=== PATIENT | female | born 1950 | race Caucasian/White ===

== ENCOUNTER 2019-08-26 21:58 | Inpatient (IN) ==
[2019-08-26] MEDS ORDERED: SODIUM CHLORIDE 1,000 ML IV STA (22:58)
[2019-08-26] MEDS ORDERED: VANCOMYCIN 1 GM in SODIUM CHLORIDE 250 ML IV STA (22:59)
[2019-08-26] MEDS ORDERED: ZOSYN 3.375 GM 3.375 GM in SODIUM CHLORIDE 50 ML IV STA (22:59)
--- NOTE | 2019-08-27 00:22 | CT ---
Exam: CT of the chest, abdomen and pelvis without contrast History: Cough and fever Technique: [address] of the chest, abdomen and pelvis without intravascular contrast FINDINGS: Chest: Small bilateral pleural effusions are present. Consolidative change in the basilar right upper lobe. Atelectasis versus consolidation of the basilar left upper lobe and left lower lobe. Atherosclerot ic calcification of the aorta without aneurysm. No pathologic lymph node enlargement mediastinum. N o acute chest wall abnormality. Abdomen and pelvis: Technically inhibiting artifact. The patient's flanks are touching the gantry. No significant liver abnormality. The adrenals, pancreas and spleen are unremarkable. The stomach and hiatus are unrema rkable. Bowel loops demonstrate normal caliber. No inflamatory change seen in the mesentery or retr operitoneum. The appendix is normal. Atherosclerotic calcification of the aorta without aneurysm. Exophytic indeterminate 4.9 x 3.3 cm lesion of the left kidney anteriorly also seen on 07/13/2019. Calcified nodules of the uterus. No pelvic fat inflammation. Anne catheter decompresses the urinar y bladder. Colonic diverticulosis of the sigmoid. No pelvic fat inflammation. No acute findings of the skeleton. Impression: 1. Small bilateral pleural effusions with adjacent compressive atelectasis. Complete atelectasis of the left lower lobe. Cannot exclude pneumonia component. 2. Patchy consolidation in the right upper lobe favoring pneumonia. Atelectasis versus pneumonia of the basilar left upper lobe. 3. No inflammatory process, bowel or urinary obstruction 4. Indeterminate mass in the anterior left kidney also seen on 07/13/2019. Further evaluation with renal mass CT versus MRI recommended. Ultrasound will likely not be helpful given body habitus limit ations.
[2019-08-27] MEDS ORDERED: DUONEB NEB STA (00:43)
[2019-08-27] MEDS ORDERED: XOPENEX 1.25 MG NEB STA (00:43)
[2019-08-27] MEDS ORDERED: LASIX IVP STA ×2 (00:45→17:36)
--- NOTE | 2019-08-27 00:59 | ED.PDOC ---
General ED Provider: Dr. KAREN BRODY Chief Complaint: Shortness of Air Stated Complaint: sent from the mo with sob and temp 101.8 Time Seen by Physician: 01:11 Mode of Arrival: Ambulance Information Source: Patient and EMT Primary Care Provider: AJITH CALVILLO Nursing and Triage Documentation Reviewed and Agree: Yes Does patient meet sepsis criteria?: No System Inflammatory Response Syndrome: Temp 101F or Greater Sepsis Protocol: For patient's 13 years and over: Temp is 96.8 and below OR 101 and greater Pulse >90 BPM Resp >20/minute Acutely Altered Mental Status Are patient's symptoms suggestive of a new infection, such as: -Pneumonia -Skin, Soft Tissue -Endocarditis -UTI -Bone, Joint Infection -Implantable Device -Acute Abdominal Infection -Wound Infection -Meningitis -Blood Stream Catheter Infection -Unknown Respiratory Complaint Exam Respiratory Complaint/Exam Onset/Duration: 24hrs Symptoms Are: Still present Timing: Constant Initial Severity: Mild Current Severity: Moderate Location: Chest Character: Reports Non-productive cough Aggravating: Reports None Alleviating: Reports Bronchodilators Associated Signs and Symptoms: Reports Dyspnea, Fever and Chills History of Healthcare-Acquired Pneumonia: Lives at [facility] Oxygen Use: No Recent Stress Test: No Recent Echo/LV Function: No Current Antibiotic Use: No Current Asthma Medication Use: No Respiratory Distress: Mild Inadequate Respiratory Effort: Yes Dysphagia Present: No Stridor Present: No JVD Present: No Accessory Muscle Use: No Retractions: Not Present Diminished Breath Sounds: Yes Prolonged Respiration: Expiratory phase Sinus Tenderness: None Grunting Respirations: No Kussmaul Respirations: No Differential Diagnoses: Pulmonary Edema and Pneumonia Quality Indicators For Pneumonia: Blood Cultures-SCU admit Non-Traumatic Chest Pain Syncope: EKG Performed Review of Systems Review Of Systems Constitutional: Reports No symptoms Eyes: Reports No symptoms Ears, Nose, Mouth, Throat: Reports No symptoms Respiratory: Reports Cough and Short of air Cardiac: Reports No symptoms GI: Reports No symptoms : Reports No symptoms Musculoskeletal: Reports No symptoms Skin: Reports No symptoms Neurological: Reports No symptoms Endocrine: Reports No symptoms Hematologic/Lymphatic: Reports No symptoms All Other Systems: Reviewed and Negative [facility] Medical History Bladder tumor (Acute) Diabetes (Acute) Hypertension (Acute) Serum lipids high (Acute) Female Reproductive History Menstrual Hx Hysterectomy: No Hx Tubal Ligation: No Physical Exam Physical Exam Appearance: Ill-appearing Ill-appearing: Moderate Pain Distress: None Eyes: CARLOS ALBERTO, EOMI and Conjunctiva clear ENT: Ears normal and Nose normal Neck: Supple Respiratory: Breath sounds equal, Breath sounds diminished, Crackles and Rhonchi Cardiovascular: RRR and Pulses normal GI/: Soft and Nontender Musculoskeletal: Normal strength Skin: Warm Neurological: Sensation intact, Motor intact, Reflexes intact, Cranial nerves intact and Oriented Psychiatric: Affect appropriate, Mood appropriate and Anxious Interpretation Radiology Interpretation Radiology Interpretation By: Radiologist Radiology Results: Positive Exam Interpreted: CT Scan EKG Interpretation Time of EKG #1: 00:58 Rate: Normal Rhythm: Sinus Ectopy: None Camino: NL ST Segment: Normal Interpretation: nsr Re-Evaluation Re-Evaluation Time of Re-Evaluation: 01:09 Status: Improved Vital Signs Stable: Yes Pain Level: 0 Appearance: NAD Lungs: Other Skin: Warm and Dry Neuro: Alert and Oriented X3 CV: RRR Additional Comments: scattered rhonchi Critical Care Note Critical Care Note Total Time (mins): 0 Course Course Hematology/Chemistry: 08/26/19 23:00 08/26/19 23:00 Orders, Labs, Meds: Lab Review 08/26/19 08/26/19 08/26/19 23:00 23:00 23:00 WBC 8.01 RBC 2.89 L Hgb 9.4 L Hct 31.3 L MCV 108.3 H MCH 32.5 H MCHC 30.0 L RDW Coeff of Nalini 16.6 H Plt Count 212 Immature Gran % (Auto) 0.6 Neut % (Auto) 63.5 Lymph % (Auto) 24.0 Glascock % (Auto) 9.0 Eos % (Auto) 2.4 Baso % (Auto) 0.5 Immature Gran # (Auto) 0.1 Neut # (Auto) 5.1 Lymph # (Auto) 1.9 [place]ock # (Auto) 0.7 Eos # (Auto) 0.2 Baso # (Auto) 0.0 Polychromasia 1+ Anisocytosis Not present Macrocytosis 3+ Puncture Site O2 Saturation ABG pH ABG pCO2 ABG pO2 ABG HCO3 ABG Total CO2 ABG Base Excess Federico Test O2 Delivery Device Oxygen Liter Flow FiO2 % Sodium 141.4 Potassium 4.49 Chloride 104.7 Carbon Dioxide 30.6 H Anion Gap 10.59 BUN 24.5 H Creatinine 1.53 H Estimated GFR (MDRD) 34.00 BUN/Creatinine Ratio 16.01 Glucose 147.1 H Lactic Acid 0.67 L Calcium 8.93 Total Bilirubin 0.42 AST 32.1 ALT 17.7 Alkaline Phosphatase 117.3 Total Protein 7.37 Albumin 3.32 L Globulin 4.05 Albumin/Globulin Ratio 0.81 Procalcitonin Urine Color Urine Clarity Urine pH Ur Specific [place] Urine Protein Urine Glucose (UA) Urine Ketones Urine Blood Urine Nitrite Urine Bilirubin Urine Urobilinogen Ur Leukocyte Esterase Urine Microscopic RBC Urine Microscopic WBC Ur Squamous Epith Cells Ur Transition Epith Cell Uric Acid Crystals Urine Bacteria Granular Casts Urine Mucus Urine Yeast 08/26/19 08/26/19 08/26/19 23:00 23:00 23:15 WBC RBC Hgb Hct MCV MCH MCHC RDW Coeff of Nalini Plt Count Immature Gran % (Auto) Neut % (Auto) Lymph % (Auto) [place] % (Auto) Eos % (Auto) Baso % (Auto) Immature Gran # (Auto) Neut # (Auto) Lymph # (Auto) [place] # (Auto) Eos # (Auto) Baso # (Auto) Polychromasia Anisocytosis Macrocytosis Puncture Site Lbrac O2 Saturation 100.0 ABG pH 7.407 ABG pCO2 47.8 H ABG pO2 177.0 H ABG HCO3 30.1 H ABG Total CO2 32 H ABG Base Excess 5 H Federico Test + O2 Delivery Device Nrb Oxygen Liter Flow 15.00 FiO2 % 100.0 Sodium Potassium Chloride Carbon Dioxide Anion Gap BUN Creatinine Estimated GFR (MDRD) BUN/Creatinine Ratio Glucose Lactic Acid Calcium Total Bilirubin AST ALT Alkaline Phosphatase Total Protein Albumin Globulin Albumin/Globulin Ratio Procalcitonin 0.27 Urine Color Yellow Urine Clarity Turbid Urine pH 5.5 Ur Specific [place] 1.020 Urine Protein 1+ Urine Glucose (UA) Negative Urine Ketones Negative Urine Blood 3+ Urine Nitrite Negative Urine Bilirubin Negative Urine Urobilinogen 0.2 Ur Leukocyte Esterase 1+ Urine Microscopic RBC Tntc Urine Microscopic WBC 50-100 Ur Squamous Epith Cells 10-20 Ur Transition Epith Cell 2-5 Uric Acid Crystals 3+ Urine Bacteria 3+ Granular Casts 0-2 Urine Mucus 3+ Urine Yeast 4+ Orders Category Date Time Status ABG DRAW REQUEST Stat CARDIO 08/26/19 23:00 Completed EKG-(ED ONLY) Stat CARDIO 08/26/19 22:55 Completed NEBULIZER TREATMENT Stat CARDIO 08/27/19 00:43 Ordered ED STRAIGHT CUTTER MACHINE APPLIED .ONCE EMERGENCY 08/26/19 22:55 Active ED IV/MEDIPORT/POWERPORT .ONCE EMERGENCY 08/26/19 22:58 Active ABG Stat LAB 08/26/19 23:00 Completed BLOOD CULTURE (ED ONLY) Stat LAB 08/26/19 23:00 Received CBC W/ AUTO DIFF Stat LAB 08/26/19 23:00 Completed COMPREHENSIVE METABOLIC PANEL Stat LAB 08/26/19 23:00 Completed LACTIC ACID Stat LAB 08/26/19 23:00 Completed PROCALCITONIN Stat LAB 08/26/19 23:00 Completed RBC MORPHOLOGY Stat LAB 08/26/19 23:00 Completed URINALYSIS C & S IF INDICATED Stat LAB 08/26/19 23:15 Completed URINE CULTURE Stat LAB 08/26/19 23:15 Received 0.9 % Sodium Chloride [Saline Flush] MEDS 08/26/19 22:58 Active 1 syr IVF PRN PRN Furosemide [Lasix] MEDS 08/27/19 00:45 Discontinued 40 mg IVP ONCE STA Ipratropium/Albuterol Neb [Duoneb] MEDS 08/27/19 00:43 Discontinued 3 ml NEB ONCE STA Levalbuterol HCl [Xopenex 1.25 mg] MEDS 08/27/19 00:43 Discontinued 1.25 mg NEB ONCE STA Piperacillin Sodium/Tazobactam [Zosyn 3.375 gm] 3.375 MEDS 08/26/19 22:59 Discontinued gm 0.9 % Sodium Chloride [Sodium Chloride] 50 ml IV ONCE Sodium Chloride 0.9% [Sodium Chloride] 1,000 ml MEDS 08/26/19 22:58 Active IV 30 mls/hr Vancomycin 1 gm MEDS 08/26/19 22:59 Discontinued 0.9 % Sodium Chloride [Sodium Chloride] [address] ABDOMEN/PELVIS WO CONTRAST Stat RADS 08/26/19 22:[address] CHEST W/O CONTRAST Stat RADS 08/26/19 22:57 Completed Medications Generic Name Dose Route Start Last Admin Trade Name Freq PRN Reason Stop Dose Admin Sodium Chloride 1,000 mls @ 30 mls/hr 08/26/19 22:58 08/26/19 23:31 Sodium Chloride IV 08/28/19 08:17 30 mls/hr .[id number] STA Administration Sodium Chloride 1 syr 08/26/19 22:58 Saline Flush IVF PRN PRN To flush IV Discontinued Medications Generic Name Dose Route Start Last Admin Trade Name Freq PRN Reason Stop Dose Admin Albuterol/Ipratropium 3 ml 08/27/19 00:43 Duoneb NEB 08/27/19 00:44 ONCE STA Furosemide 40 mg 08/27/19 00:45 08/27/19 00:55 Lasix IVP 08/27/19 00:46 40 mg ONCE STA Administration Piperacillin Sod/Tazobactam 50 mls @ 50 mls/hr 08/26/19 22:59 08/27/19 00:55 Sod 3.375 gm/ Sodium Chloride IV 08/26/19 23:58 50 mls/hr ONCE STA Administration Vancomycin HCl 1 gm/ Sodium 250 mls @ 250 mls/hr 08/26/19 22:59 08/26/19 23:30 Chloride IV 08/26/19 23:58 250 mls/hr ONCE STA Administration Levalbuterol HCl 1.25 mg 08/27/19 00:43 Xopenex 1.25 Mg NEB 08/27/19 00:44 ONCE STA Vital Signs: Temp Pulse Resp BP Pulse Ox 08/27/19 00:18 93 H 24 137/73 97 08/26/19 22:53 101.4 F H 89 30 H 148/73 H 98 Discharge Plan Discharge Patient Disposition: ADMITTED INPATIENT Discharge Problem: Pneumonia Prescriptions: No Action simvastatin 40 mg Tablet 40 mg PO BEDTIME RF: 0 amlodipine 10 mg Tablet 10 mg PO DAILY RF: 0 hydrocodone-acetaminophen [[place]] 7.5-325 mg Tablet 1 tab PO TID PRN (Reason: Pain) RF: 0 lorazepam 1 mg Tablet 1 mg PO BEDTIME PRN (Reason: Pain) RF: 0 Humalog Mix 75-25 KwikPen 100 unit/mL (75-25) Insulin Pen 30 unit SUBCUT BID RF: 0 Trulicity 0.75 mg/0.5 mL Pen Injector 0.75 mg SUBCUT WEEKLY RF: 0 metoprolol succinate 100 mg Capsule,Sprinkle,Er 24hr 100 mg PO DAILY RF: 0 Lantus U-100 Insulin 100 unit/mL Solution 15 unit SUBCUT BEDTIME RF: 0 baclofen 10 mg Tablet 10 mg PO BID RF: 0 pantoprazole [Protonix] 40 mg Tablet,Delayed Release (Dr/Ec) 40 mg PO DAILY RF: 0 cyanocobalamin (vitamin B-12) 1,000 mcg/mL Solution 1,000 mcg IM DIRECTED RF: 0 furosemide 20 mg Tablet 20 mg PO DAILY RF: 0 Symbicort 160-4.5 mcg/actuation Hfa Aerosol Inhaler 2 puff INHALATION BID RF: 0 ED Provider: KAREN BRODY Condition: Stable
[2019-08-27] MEDS ORDERED: HUMULIN R SUBCUT PRN (01:13)
[2019-08-27] MEDS ORDERED: TYLENOL PO PRN (01:13)
[2019-08-27] MEDS ORDERED: ALBUTEROL 0.083% NEB NEB PRN (01:13)
[2019-08-27] MEDS ORDERED: NORCO 7.5-325 PO PRN (01:17)
[2019-08-27] MEDS ORDERED: ATIVAN PO PRN (01:17)
[2019-08-27] MEDS ORDERED: VITAMIN B-12 IM SCH (01:30)
[2019-08-27] MEDS ORDERED: CALMOSEPTINE OINTMENT TP PRN (02:37)
[2019-08-27] MEDS ORDERED: NYSTOP POWDER TP PRN (02:37)
[2019-08-27 03:44] VITALS: BMI 56.6
[2019-08-27] MEDS: DUONEB NEB SCH ×4 (05:43→18:16)
[2019-08-27] MEDS ORDERED: ZOSYN 3.375 GM 3.375 GM in SODIUM CHLORIDE 50 ML IV SCH (07:30)
[2019-08-27] MEDS: HUMALOG MIX 75-25 SUBCUT SCH ×2 (08:28→18:18)
[2019-08-27] MEDS ORDERED: LOVENOX SUBCUT SCH (09:00)
[2019-08-27] MEDS ORDERED: SYMBICORT 160-4.5 MCG INHALER IH SCH (09:00)
[2019-08-27] MEDS ORDERED: TOPROL XL PO SCH (09:00)
[2019-08-27] MEDS ORDERED: BACLOFEN PO SCH (09:00)
[2019-08-27] MEDS ORDERED: LASIX TAB PO SCH (09:00)
[2019-08-27] MEDS ORDERED: PROTONIX PO SCH (09:00)
[2019-08-27] MEDS ORDERED: NORVASC PO SCH (09:00)
[2019-08-27] MEDS ORDERED: VANCOMYCIN 1.25 GM in SODIUM CHLORIDE 250 ML IV SCH (10:00)
[2019-08-27] MEDS ORDERED: ATIVAN PO SCH ×2 (12:00→21:00)
[2019-08-27] MEDS: ATIVAN PO SCH ×2 (12:05→15:18)
[2019-08-27] MEDS: SOLU-CORTEF 250 MG IVP SCH ×2 (12:05→13:13)
[2019-08-27] MEDS ORDERED: MAXIPIME 2 GM/50 ML D5W 2 GM/50 ML BAG IV SCH (13:00)
[2019-08-27 14:35] VITALS: BP 128/59; TEMP 97.6
[2019-08-27] MEDS ORDERED: LASIX ONE (17:36)
[2019-08-27] MEDS ORDERED: EPINEPHRINE 1 MG/10 ML SYRINGE IVP STA (17:47)
--- NOTE | 2019-08-27 17:52 | DI ---
EXAM: Single, portable AP view(s) chest. HISTORY: Respiratory distress. COMPARISON: None. TECHNIQUE: Single, portable AP view(s) of the chest. FINDINGS: Lungs: The lung voulmes are normal.There are bilateral pleural effusions. Diffuse bilateral intersti tial airspace disease is seen, left greater than right. There are no suspicious nodules. There is no pneumothorax. Cardiovascular: The heart is enlarged. There is pulmonary vascular prominence.. The aorta is unrema rkable. Catalina/Mediastinum: Normal. Osseous structures. Normal for age. IMPRESSION: Cardiomegaly. Bilateral effusions and extensive diffuse bilateral air space disease. Findings are consistent with congestive failure and edema. Underlying pneumonia cannot be excluded.
--- NOTE | 2019-08-27 19:43 | PCM.PROG ---
Time of : 19:43 Preliminary Cause of : aspiration pneumonia
[2019-08-27] MEDS ORDERED: ZOCOR PO SCH (21:00)
[2019-08-27] MEDS ORDERED: LANTUS SUBCUT SCH (21:00)
--- NOTE | 2019-08-30 09:25 | DS ---
DATE OF SERVICE: 08/27/19 FINAL DIAGNOSIS: 1. Respiratory failure 2. Bilateral pneumonia 3. Diabetes mellitus, insulin dependant 4. Morbid obesity with BMI of more than 60. 5. Metabolic syndrome 6. Dyslipidemia 7. Hypertension 8. Gastroesophageal reflux disease 9. Generalized osteoarthritis 10.History of fall, been on physical therapy lately. HOSPITAL COURSE: 69 year old white female who is a resident of [facility] was brought to the emergency room early in the morning because of fever, chills and shortness of breath. The patient had bilateral pneumonia and she was started on antibiotics Zosyn and Vancomycin which was switched to Cefepime. The patient's condition seemed to have improved and steroids were added. The patient had a good lunch and was doing fine until she was found blue and without her oxygen on at approximately 5:00pm. The patient had bradycardiac for which she was given Atropine and epinephrine. The patient responded. The patient was DNI. She was resuscitated. The patient's blood pressure systolic were acceptable for next few hours after her CPR. The patient family came over, took them 1 hours. In that time the patient had a pulse of 90-120 per minute with blood pressure systolic 120-140. Her saturations stayed 74-76% with 100% nonrebreather. The patient's family was explained that the chest x-ray shows possibility of aspiration and other possibility was stroke. The patient's pupils were not reacting to light ever since her CPR. The patient's family didn't want any further aggressive measures. The patient's prognosis was poor. It was explained to the family. The patient a few hours later on. She was pronounced by Dr. Sigala. Cause of : Respiratory failure likely from aspiration and or stroke. ADDENDUM: The patient has multiple underlying comorbidities which were uncontrolled prior to us taking over her care in the [facility] over the past month. Hgb A1c was previously around 10. She was not taking any insulin, A1c at this time of discharge now down to 7.6. We have put her on insulin therapy. She has had some chronic kidney disease with refusal to see nephrology, Chronic anemia along with chronic kidney disease. 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 Vascular was also consulted due to the nature of her wounds. She saw Dr. Michelle at [facility]. The patient has a long history of noncompliance with medications, followup, diet and lifestyle. Again she had previously refused multiple referrals to specialists. She had been seeing Thi Singh as her primary care provider at the [facility] in [place]. We recently took over her care for a short term while she was undergoing physical and occupational therapy at [place]. She was placed there after experiencing a fall about a month and a half ago at home for which she laid there for some time and developed rhabdomyolysis and elevated kidney function. TIME SPENT: More than 60 minutes. SAVAGE
--- NOTE | 2019-08-30 10:02 | PN ---
DATE OF SERVICE: 08/27/19 SUBJECTIVE: 69 year old white female was hospitalized with fever. She had bilateral basal pneumonia with respiratory failure. The patient was doing fine and had a good lunch and ate practically 100% of her lunch. I had talked to her after lunch in the presence of the son. The patient was doing fine on high flow oxygen. Approximately 5:00pm today the patient was found without her oxygen and garcia color and blue. Her oxygen saturation was in 70's. Her pulse went down to 20-25 and at that point she was given Epinephrine and Atropine was followed. A code was called and Dr. Blanco was in the hospital and he attended the patient. At that time they called and by the time they called by Dr. Blanco was already present. I arrived approximately in 10 minutes. They patient had blood pressure of 150-160 systolic with pulse of 120. She was unconscious, pupils were fixed and not reacting to light. The patient is DNI. 100% of nonrebreather was applied to the patient. The saturation still was 75-76%. Portable chest x-ray showed left sided white out raising the possibility of massive aspiration, a stroke can not be ruled out. The patient was unable to move any of her extremities. She did not reactive verbally or painfully. At that point the patient's daughter was called. The daughter had called the son who arrived and I explained to both of them. The patient very likely had aspirated with white out of the left lung along with having bilateral pneumonia. Also there was a possibility of stroke. At 6:00pm the daughter came in conjunction with the son and the daughter it was decided that the patient be left on 100% nonrebreather. Blood pressure at that time was 120-130 systolic with pulse of 93 and oximetry of 75%. Explained to them the prognosis is very poor. Of course the patient was do not intubate. The daughter was in agreement and was explained to both of them that the prognosis very poor. The patient was given 20mg Lasix IV and rest of the antibiotics and other measures will be continued as tolerated. Daughter and the son wanted to the patient to be treated with comfort measures. Prognosis is extremely poor. Acute respiratory failure likely from aspiration with worsening of both sided pneumonia with hypoxemia. Stroke can not ruled out with multiple risk factor the patient has like massive obesity and history of hypertension, dyslipidemia and sleep apnea. TIME SPENT: More than 70 minutes. Plan and coordination of the patient's care discussed in the presence of nurse. SAVAGE
--- NOTE | 2019-08-30 11:07 | HP ---
DATE OF SERVICE: 08/27/19 REASON FOR HOSPITALIZATION: Shortness of breath and fever of 101.8. HISTORY OF PRESENT ILLNESS: 89 year old female who [facility] a [facility] because of fever, chills and shortness of breath. The patient on further workup in the emergency room by ER attending was noted to have bilateral pneumonia. PAST MEDICAL HISTORY/PAST SURGICAL HISTORY: Morbid obesity Hypertension Dyslipidemia Diabetes mellitus Anxiety disorder Reflux disease Dementia Anemia Chronic kidney disease REVIEW OF SYSTEMS: CONSTITUTIONAL: No night sweats. Fatigue and weakness with fever. HEENT: Eyes: No visual changes. No eye pain. No eye discharge. ENT: No runny nose. No epistaxis. No sinus pain. No sore throat. No odynophagia. No ear pain. No congestion. RESPIRATORY: Cough, Congestion. No hemoptysis. Shortness of breath. CARDIOVASCULAR: No angina symptoms. No CHF symptoms. Pleuritic type of pain on her right side. No palpitations. No PND. No orthopnea. GASTROINTESTINAL: No abdominal pain. No nausea or vomiting. No diarrhea or constipation. No hematemesis. No hematochezia. GENITOURINARY: No urgency. No frequency. No dysuria. No hematuria. No obstructive symptoms. No discharge. No pain. No significant abnormal bleeding. MUSCULOSKELETAL: No musculoskeletal pain. No joint swelling. No arthritis. NEUROLOGICAL: No headache. No neck pain. No syncope. No seizures. No dizziness. PSYCHIATRIC: Not anxious. No depression. No suicidal thoughts. No homicidal thoughts. The patient is confused with some hallucination. SKIN: No rash. No lesions. No wounds. ENDOCRINE: No unexplained weight loss. No weight gain. HEMATOLOGIC/LYMPHATIC: No anemia. No purpura. No petechiae. No prolonged or excessive bleeding. No palpable lymph nodes. PERSONAL/FAMILY/SOCIAL HISTORY: The [facility] is resident of [facility], disabled. The son was present in the room. She is a DNI. The patient was at [facility] then was hospitalized at [facility] because he had fallen. She is in [place] for past one month because of physical therapy. MEDICATIONS: Amlodipine 10mg PO daily Trulicity 0.75 SUBCUT daily Paxinos 1 tablet PO TID Humalog mix 75-25-30 units SUBCUT Twice a day Lorazepam 1mg at night Metoprolol 100mg PO QAM Simvastatin 40mg PO QAM Baclofen 10mg twice a day Symbicort two puffs BID Lasix 20mg BID Lantus 15 SUBCUT daily Protonix 40mg PO daily Nystatin 1 application topical QID ALLERGIES: None PHYSICAL EXAMINATION: GENERAL: The patient seems to be oriented to person and place VITAL SIGNS: Temperature 98.4, pulse 96, respiratory rate 24, blood pressure 142/72 and pulse ox 92% with oxygen HEENT: Head normocephalic, atraumatic. Eyes: Extraocular muscles are intact. Pupils are equal, round and reactive to light and accommodation. Ears: No lesions. Nose appeared normal. Throat: No exudate or erythema. NECK: Supple. No JVD, no carotid bruit. No lymphadenopathy or thyromegaly. LUNGS: Decreased breath sounds with mild expiratory wheeze. Percussion note normal. Chest symmetrical. HEART: S1, S2 distant, no S3. No murmur. No cyanosis or clubbing. No ascites. Pulses: Dorsalis pedis and posterior tibial pulses +1 to +2 bilaterally. ABDOMEN: Soft. Protuberant. Nontender. Bowel sounds active. No CVA tenderness. No mass felt. EXTREMITIES: pitting/nonpitting +2-+3 edema with keith bandage surrounding. Full range of motion of all extremities, equal. NEUROLOGIC: No focal deficit. Cranial nerves II through XII are grossly intact. No headache, no double vision or headache. SKIN: Not dry. Intact. Turgor - normal. Face seems to be flush LYMPHATIC: No palpable lymph nodes/no lymphedema. MUSCULOSKELETAL: Normal joints with no swelling. Muscle tone is normal. ASSESSMENT: 1. Fever/chills likely bilateral pneumonia 2. Severe restrictive lung disease 3. Massive obesity 4. Diabetes mellitus 5. Anemia, chronic 6. Chronic kidney disease 7. Metabolic syndrome 8. Hypertension 9. Dyslipidemia PLAN: 1. Continue antibiotics, will change it to Cefepime 2mg Q 8 hours which will cover mostly Zosyn and Vancomycin would cover 2. Vancomycin and Zosyn were discontinued because of possibility of renal toxicity 3. Will add Solu-Cortef 125mg IV now and Q 8 hours 4. Continue NEBS treatment 5. Continue Lasix PO and Continue all the rest of the medications 6. Continue telemetry CONDITION: Stable for now PROGNOSIS: Guarded. I explained to the son that the patient is morbidly obese with bilateral pneumonia with respiratory failure. The patient's arterial blood gasses deteriorated with 60% Venturi mask but seems to be better with flow oxygen 6 liters with oxygen saturation 92%. On admission the patient will on 100% nonrebreather with PO2 177 with pCo2 47, pH 7.40 with 100% oxygen. U/A showed 1+ protein. Procalcitonin 0.27 negative. HGB 9.4, hct 31, WBC 8,000 normal differential, creatinine 1.5, BUN 24 and lactic acid 0.67 low. Leukocyte esterase was +1. TIME SPENT: More than 70 minutes. MTDD
== END 2019-08-27 21:30 | disposition expired | DRG 189 ==
LOC: ED 22:51 → MEDSURG B 08-27 01:20
PROVIDERS: ADMIT Internal Medicine; ATTEND Internal Medicine